=== PATIENT | male | born 1985 | race Caucasian/White ===

== ENCOUNTER 2019-01-15 15:06 | Emergency (ER) | payer MEDICAID ==
[2019-01-15] MEDS ORDERED: DIPH/PERTUSS(ACELL)/TETANUS VAC/PF 0.5 ML SYR (>=10YO) IM ONE (15:33)
[2019-01-15] MEDS ORDERED: CIPROFLOXACIN HCL 500 MG TABLET PO ONE (15:33)
--- NOTE | 2019-01-15 15:35 | ER Document Report ---
ED Medical Screen (RME) - General Chief Complaint: Puncture Wound Stated Complaint: RIGHT FOOT INJURY Time Seen by Provider: 01/15/19 15:29 Primary Care Provider: TACO CONTE [Primary Care Provider] - Follow up as needed Mode of Arrival: Ambulatory Information source: Patient Notes: 33-year-old male presented to ED for puncture wound to his foot. He states that he stepped on a nail with his tennis shoes on this morning. He states he took the nail out and now he has pain up to his middle of his lower leg. He is tetanus shot is up-to-date. 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 He does have a lot of depression and he is with his mother. I have greeted and performed a rapid initial assessment of this patient. A comprehensive ED assessment and evaluation of the patient, analysis of test results and completion of medical decision making process will be conducted by an additional ED providers. TRAVEL OUTSIDE OF THE [place] IN LAST 30 DAYS: No - Related Data Allergies/Adverse Reactions: No Known Allergies Allergy (Verified 01/15/19 15:28) Past Medical History - Social History Chew tobacco use (# tins/day): No Drug Abuse: None Doctor's Discharge - Discharge Referrals: TACO CONTE [Primary Care Provider] - Follow up as needed
--- NOTE | 2019-01-15 15:49 | ER Document Report ---
HPI - HPI Time Seen by Provider: 01/15/19 15:29 Pain Level: 5 Context: Patient is a 33-year-old male presents to the emergency department with a chief complaint of right foot injury. Patient reports around 1020 this morning he was wearing rubber flip-flops when he stepped on a nail. Patient states he did have to remove the nail out of the bottom of his right foot. Patient reports he was concerned because he does not have a tetanus shot. Patient reports he does have pain that radiates up into the right calf. Patient states he has not taken anything for pain. Patient denies redness that streaks of the leg, swelling, fever. Patient denies numbness or tingling to the foot or lower extremity. - REPRODUCTIVE Reproductive: DENIES: : Past Medical History - General Information source: Patient - Social History Smoking Status: Current Every Day Smoker Chew tobacco use (# tins/day): No Drug Abuse: None Lives with: Spouse/Significant other Family History: None Patient has suicidal ideation: No Patient has homicidal ideation: No - Past Medical History Cardiac Medical History: Reports: None Pulmonary Medical History: Reports: None EENT Medical History: Reports: None Neurological Medical History: Reports: None Endocrine Medical History: Reports: None Renal/ Medical History: Reports: None Malignancy Medical History: Reports None GI Medical History: Reports: None Musculoskeletal Medical History: Reports None Skin Medical History: Reports None Psychiatric Medical History: Reports: None Traumatic Medical History: Reports: None Infectious Medical History: Reports: None Surgical Hx: Negative Vertical Provider Document - CONSTITUTIONAL Agree With Documented VS: Yes Exam Limitations: No Limitations General Appearance: No Apparent Distress - INFECTION CONTROL TRAVEL OUTSIDE OF THE [place] IN LAST 30 DAYS: No - HEENT HEENT: Atraumatic, Normocephalic, PERRLA - NECK Neck: Normal Inspection - RESPIRATORY Respiratory: Breath Sounds Normal, No Respiratory Distress - CARDIOVASCULAR Cardiovascular: Regular Rate, Regular Rhythm - GI/ABDOMEN Gastrointestinal: Abdomen Soft, Abdomen Non-Tender - NEURO Level of Consciousness: Awake, Alert, Appropriate - DERM Integumentary: Warm, Dry Notes: There is a puncture wound noted to the plantar aspect of the right foot at the base of the metatarsals. There is no redness, edema, drainage. Patient has a good strong +2 dorsalis pedis and posterior tibial pulse. Course - Re-evaluation Re-evalutation: 01/15/19 15:50 Patient to soak right foot as ordered. Will obtain an x-ray to rule out foreign body. I did inform the patient that he will be placed on oral antibiotics to prevent infection as the nail did go through a rubber flip-flop into the bottom of his foot. Tetanus will be updated. 01/15/19 16:35 Patient has been soaking his foot for about 15 to 20 minutes. I did reevaluate his foot which did not reveal any drainage. I did take a soft Q-tip to investigate the wound. The wound does not appear to be deep. There is no bleeding. Patient reports pain that streaks up to the right lower leg. Patient denies numbness or tingling. I did give the patient strict return precautions to include numbness and tingling, redness, swelling, fever. - Diagnostic Test Radiology reviewed: Reports reviewed Radiology results interpreted by me: 01/15/19 16:25 Foot X-Ray 01/15/19 15:43 IMPRESSION: No acute osseous abnormality of the right foot. No radiopaque foreign body. Discharge - Discharge Clinical Impression: Puncture wound Condition: Stable Disposition: HOME, SELF-CARE Additional Instructions: Today you are seen in the emergency department for a right foot injury. You do have a puncture wound to the plantar aspect of the right foot from a nail. We have thoroughly cleansed the foot and obtained an x-ray to rule out foreign body. The x-ray was negative. You will be placed on oral antibiotics for the next 5 days to help prevent infection as the nail did go through your shoe and into the foot. You are at high risk for infection. Please monitor for signs of redness, swelling, warmth, increasing pain or wound drainage. If you develop numbness, bleeding, inability to move the injured area please return to the emergency department for a prompt re-evaluation. Please keep the foot as clean as possible at home. Puncture Wound You have a puncture wound. Because these wounds often penetrate deeply beneath the skin, you must observe them carefully for complications. The wound has been examined for retained foreign material and for damage to tendons and nerves. The area should be rested and elevated for 24 hours. Then you can use the injured part -- if moving it is painfree. Punctures of the hand or foot may require splinting or crutches. The dressing should be changed daily until the wound is healed. Watch for signs of infection. Call the doctor immediately if redness, swelling, warmth, increasing pain, or wound drainage occur. If you develop numbness, persistent bleeding, or inability to move the injured area, please return for prompt re-evaluation. Prescriptions: Ciprofloxacin HCl [Cipro 500 mg Tablet] 500 mg PO BID #10 tablet Forms: Return to Work Referrals: LOCAL,NO [NO LOCAL MD] - Follow up as needed
--- NOTE | 2019-01-15 16:19 | RADIOLOGY REPORT (SQ) ---
EXAM DESCRIPTION: FOOT RIGHT COMPLETE COMPLETED DATE/TIME: 01/15/2019 4:04 pm REASON FOR STUDY: stepped on nail, r/o foreign body COMPARISON: None. NUMBER OF VIEWS: Three views. TECHNIQUE: AP, lateral and oblique radiographic images acquired of the right foot. LIMITATIONS: None. FINDINGS: MINERALIZATION: Normal. BONES: No acute fracture or dislocation. No osseous lesions. JOINTS: No effusions. SOFT TISSUES: No soft tissue swelling, radiopaque foreign body or subcutaneous emphysema. OTHER: The tarsometatarsal alignment is preserved. IMPRESSION: No acute osseous abnormality of the right foot. No radiopaque foreign body. TECHNICAL DOCUMENTATION: JOB ID: [id number] [email or web address]- All Rights Reserved Reading location - IP/workstation name: [email or web address]
[2019-01-15] MEDS ORDERED: HYDROCODONE/ACETAMINOPHEN 5-325 MG TABLET PO ONE (16:34)
[2019-01-15] MEDS ORDERED: IBUPROFEN 800 MG TABLET PO ONE (16:34)
== END 2019-01-15 16:41 | disposition home or self-care (01) ==
LOC: ER 15:06
DX: S91.331A Puncture wound without foreign body, right foot, initial encounter (principal); W45.0XXA Nail entering through skin, initial encounter; F17.200 Nicotine dependence, unspecified, uncomplicated; Z23 Encounter for immunization
CPT/HCPCS: 73630; 90715; J3490 ×2

== ENCOUNTER → 2019-06-05 | Outpatient (CLI) | payer MEDICAID ==
[2019-06-05 08:48] LABS: ABSOLUTE BASOPHILS # (AUTO) 0.1 10^3/uL (0.0-0.2); ABSOLUTE EOSINOPHILS # (AUTO) 0.5 10^3/uL (0.0-0.6); ABSOLUTE LYMPHOCYTES (AUTO) 3.5 10^3/uL (0.5-4.7); ABSOLUTE MONOCYTES (AUTO) 0.6 10^3/uL (0.1-1.4); ABSOLUTE NEUT (AUTO) 2.1 10^3/uL (1.7-8.2); BASOPHILS % (AUTO) 1.2 % (0-2); EOSINOPHILS % (AUTO) 7.3 % (0-6); HEMATOCRIT 41.5 % (37.9-51.0); HEMOGLOBIN 14.8 g/dL (13.5-17.0); LYMPHOCYTES % (AUTO) 51.9 % (13-45); MEAN CORPUSCULAR HGB CONC 35.6 g/dL (32.0-36.0); MEAN CORPUSCULAR VOLUME 93 fl (80-97); MONOCYTES % (AUTO) 8.4 % (3-13); PLATELET COUNT 251 10^3/uL (150-450); RED BLOOD COUNT 4.48 10^6/uL (4.35-5.55); RED CELL DISTRIBUTION WIDTH 12.5 % (11.5-14.0); SEGMENTED NEUTROPHILS % (AUTO) 31.2 % (42-78); TOTAL CELLS COUNTED % (AUTO) 100 %; WHITE BLOOD COUNT 6.8 10^3/uL (4.0-10.5)
[2019-06-05 09:28] LABS: ALBUMIN 4.3 g/dL (3.5-5.0); ALKALINE PHOSPHATASE 66 U/L (38-126); ANION GAP 8 (5-19); ASPARTATE AMINO TRANSFERASE 28 U/L (17-59); BILIRUBIN,TOTAL 0.5 mg/dL (0.2-1.3); BLOOD UREA NITROGEN 9 mg/dL (7-20); CALCIUM 9.3 mg/dL (8.4-10.2); CARBON DIOXIDE 29 mmol/L (22-30); CHLORIDE 103 mmol/L (98-107); CHOLESTEROL 203.26 mg/dL (0-200); GLUCOSE 94 mg/dL (75-110); POTASSIUM 4.1 mmol/L (3.6-5.0); TOTAL PROTEIN 7.1 g/dL (6.3-8.2); TRIGLYCERIDES 151 mg/dL (<150)
[2019-06-05 09:39] LABS: DIRECT LDL 141 mg/dL (<100)
[2019-06-05 09:42] LABS: VLDL CHOLESTEROL 30.2 mg/dL (10-31)
== END ==
LOC: OD 08:09
PROVIDERS: ATTEND Nurse Practitioner Psychiatric/Mental Health
DX: F90.8 Attention-deficit hyperactivity disorder, other type (principal); Z79.899 Other long term (current) drug therapy
CPT/HCPCS: 36415; 80053; 80061; 83036; 85025

== ENCOUNTER 2019-11-10 03:48 | Observation (INO) | payer MEDICAID ==
[2019-11-10 05:51] LABS: APPEARANCE,URINE CLEAR; BILIRUBIN,URINE NEGATIVE (NEGATIVE); COLOR,URINE YELLOW; GLUCOSE, URINE NEGATIVE (NEGATIVE); KETONES,URINE NEGATIVE (NEGATIVE); LEUKOCYTE ESTERASE,URINE NEGATIVE (NEGATIVE); NITRITE,URINE NEGATIVE (NEGATIVE); PROTEIN,URINE NEGATIVE (NEGATIVE); URINE SPECIFIC GRAVITY 1.024; UROBILINOGEN,URINE NEGATIVE mg/dL (<2.0)
[2019-11-10 06:02] LABS: ABSOLUTE BASOPHILS # (AUTO) 0.1 10^3/uL (0.0-0.2); ABSOLUTE LYMPHOCYTES (AUTO) 1.9 10^3/uL (0.5-4.7); ABSOLUTE MONOCYTES (AUTO) 0.9 10^3/uL (0.1-1.4); ABSOLUTE NEUT (AUTO) 16.1 10^3/uL (1.7-8.2); BASOPHILS % (AUTO) 0.7 % (0-2); EOSINOPHILS % (AUTO) 0.3 % (0-6); HEMATOCRIT 43.1 % (37.9-51.0); HEMOGLOBIN 14.9 g/dL (13.5-17.0); LYMPHOCYTES % (AUTO) 9.9 % (13-45); MEAN CORPUSCULAR HEMOGLOBIN 32.6 pg (27.0-33.4); MEAN CORPUSCULAR HGB CONC 34.7 g/dL (32.0-36.0); MEAN CORPUSCULAR VOLUME 94 fl (80-97); MONOCYTES % (AUTO) 4.6 % (3-13); PLATELET COUNT 260 10^3/uL (150-450); RED BLOOD COUNT 4.58 10^6/uL (4.35-5.55); RED CELL DISTRIBUTION WIDTH 12.8 % (11.5-14.0); SEGMENTED NEUTROPHILS % (AUTO) 84.5 % (42-78); TOTAL CELLS COUNTED % (AUTO) 100 %
[2019-11-10 06:26] LABS: ALBUMIN 4.7 g/dL (3.5-5.0); ALKALINE PHOSPHATASE 71 U/L (38-126); ANION GAP 11 (5-19); ASPARTATE AMINO TRANSFERASE 31 U/L (17-59); BILIRUBIN,TOTAL 0.4 mg/dL (0.2-1.3); BLOOD UREA NITROGEN 11 mg/dL (7-20); CALCIUM 9.6 mg/dL (8.4-10.2); CARBON DIOXIDE 20 mmol/L (22-30); CHLORIDE 105 mmol/L (98-107); GLUCOSE 126 mg/dL (75-110); POTASSIUM 4.6 mmol/L (3.6-5.0); TOTAL PROTEIN 7.7 g/dL (6.3-8.2)
[2019-11-10] MEDS ORDERED: MORPHINE SULFATE 10 MG/ML INJ IV ONE ×2 (06:56→10:13)
[2019-11-10] MEDS ORDERED: NORMAL SALINE 1000 ML 1,000 ML IV ONE ×2 (06:57→10:07)
[2019-11-10] MEDS ORDERED: ONDANSETRON HCL INJ/PF 4 MG/2 ML SDV IV ONE ×2 (06:57→10:13)
[2019-11-10 08:32] LABS: INTERNATIONAL RATION (INR) 0.99; PROTHROMBIN TIME 13.1 SEC (11.4-15.4)
[2019-11-10] MEDS ORDERED: NEOSTIGMINE METHYLSULFATE 10 MG/10 ML VIAL ONE (08:37)
[2019-11-10] MEDS ORDERED: GLYCOPYRROLATE 1 MG/5 ML VIAL ONE (08:37)
--- NOTE | 2019-11-10 09:49 | RADIOLOGY REPORT (SQ) ---
EXAM DESCRIPTION: CT ABD/PELVIS WITH IV ORAL IMAGES COMPLETED DATE/TIME: 11/10/2019 9:33 am REASON FOR STUDY: abd pain/rlq/leukocytosis COMPARISON: None. TECHNIQUE: CT scan of the abdomen and pelvis performed with intravenous and oral contrast using reina selena scanning technique with dynamic intravenous contrast injection. Images reviewed with lung, soft t issue, and bone windows. Reconstructed coronal and sagittal MPR images reviewed. Delayed images for e valuation of the urinary system also acquired. All images stored on PACS. All CT scanners at this facility use dose modulation, iterative reconstruction, and/or weight based d osing when appropriate to reduce radiation dose to as low as reasonably achievable (ALARA). [facility]: Dose Right [facility]: CareDose [facility]: Dose Right [facility]: Teradose 4D [facility]: [employer] CONTRAST TYPE AND DOSE: contrast/concentration: Isovue 350.00 mmol/ml; Total Contrast Delivered: 100 .0 ml; Total Saline Delivered: 72.0 ml RENAL FUNCTION: GFR > 60. RADIATION DOSE: CT Rad equipment meets quality standard of care and radiation dose reduction techniq ues were employed. CTDIvol: 10.3 - 14.6 mGy. DLP: 1521 mGy-cm.. LIMITATIONS: None. FINDINGS: LOWER CHEST: No significant findings. No nodules or infiltrates. LIVER: Diffusely fatty with some sparing about the gallbladder fossa. No mass or duct dilatation. SPLEEN: Normal size. No focal lesions. PANCREAS: No masses. No significant calcifications. No adjacent inflammation or peripancreatic fluid collections. Pancreatic duct not dilated. GALLBLADDER: No identified stones by CT criteria. No inflammatory changes to suggest cholecystitis. ADRENAL GLANDS: No significant masses or asymmetry. RIGHT KIDNEY AND URETER: No solid masses. No significant calcification. No hydronephrosis or hydroure ter. LEFT KIDNEY AND URETER: No solid masses. No significant calcification. No hydronephrosis or hydrouret er. AORTA AND VESSELS: No aneurysm. No dissection. Renal arteries, SMA, celiac without stenosis. RETROPERITONEUM: No retroperitoneal adenopathy, hemorrhage or masses. BOWEL AND PERITONEAL CAVITY: No obstruction. No visualized masses. No free fluid. No inflammatory ch anges or thickening of bowel wall. APPENDIX: Mildly distended thick-walled appearance with regional periappendiceal fat stranding. No f luid collections. No abscess or perforation. PELVIS: No significant masses. Normal bladder. No free fluid. ABDOMINAL WALL: No masses. No hernias. BONES: No significant or acute findings. OTHER: No other significant finding. IMPRESSION: 1. Uncomplicated acute appendicitis. No periappendiceal abscess or perforation. TECHNICAL DOCUMENTATION: JOB ID: [id number] Quality ID # [id number]: Final reports with documentation of one or more dose reduction techniques (e.g., Au tomated exposure control, adjustment of the mA and/or kV according to patient size, use of iterative reconstruction technique) 2010 [employer]- All Rights Reserved Reading location - IP/workstation name: [email or web address]
--- NOTE | 2019-11-10 10:20 | ER Document Report ---
Entered by CHRISTOFER MCKINLEY SCRIBE 11/10/19 0646 Acting as scribe for:MANE COTTER MD ED GI/ - General Chief Complaint: Abdominal Pain Stated Complaint: ABDOMINAL PAIN, CHILLS, NAUSEA, DIARRHEA Time Seen by Provider: 11/10/19 06:24 Information source: Patient Notes: This 34 year old male patient presents to the emergency department today with RLQ pain which began yesterday morning. Patient states the pain is dull and exacerbated by movement. Patient states the last time he ate was around 5 pm yesterday and vomited x1 last night after taking something for constipation. Patient states his bowel movement is normal in color and reports nausea and chills. Denies fever, cough, or sore throat. Denies any GI or Surgical history. Patient states his only medical history is anxiety and is on medications. TRAVEL OUTSIDE OF THE [place] IN LAST 30 DAYS: No - Related Data Allergies/Adverse Reactions: No Known Allergies Allergy (Verified 01/15/19 15:28) Past Medical History - General Information source: Patient - Social History Smoking Status: Current Every Day Smoker Cigarette use (# per day): Yes Family History: None Psychiatric Medical History: Reports: Hx Anxiety - On meds Past Surgical History: Reports: None Review of Systems - Review of Systems Constitutional: See HPI, Chills. denies: Fever EENT: See HPI. denies: Throat pain Cardiovascular: No symptoms reported Respiratory: See HPI. denies: Cough Gastrointestinal: See HPI, Abdominal pain, Nausea, Vomiting - x1 Genitourinary: No symptoms reported Male Genitourinary: No symptoms reported Musculoskeletal: No symptoms reported Skin: No symptoms reported Hematologic/Lymphatic: No symptoms reported Neurological/Psychological: No symptoms reported -: Yes All other systems reviewed and negative Physical Exam - Vital signs Vitals: Temp Pulse Resp BP Pulse Ox 98.6 F 84 18 131/89 H 99 11/10/19 04:41 11/10/19 04:41 11/10/19 04:41 11/10/19 04:41 11/10/19 04:41 - General General appearance: Appears well, Alert - HEENT Head: Normocephalic, Atraumatic Eyes: Normal Pupils: PERRL Mucous membranes: Dry Pharynx: Normal - Respiratory Respiratory status: No respiratory distress Chest status: Nontender Breath sounds: Normal Chest palpation: Normal - Cardiovascular Rhythm: Regular Heart sounds: Normal auscultation Murmur: No - Abdominal Inspection: Normal Distension: No distension Bowel sounds: Normal Notes: Rebound tenderness in the RLQ. - Extremities General upper extremity: Normal inspection. No: Edema General lower extremity: Normal inspection. No: Edema - Neurological Neuro grossly intact: Yes Cognition: Normal Orientation: AAOx4 Speech: Normal - Psychological Associated symptoms: Normal affect, Normal mood - Skin Skin Temperature: Warm Skin Moisture: Dry Skin Color: Normal Course - Re-evaluation Re-evalutation: 11/10/19 10:14 Patient continues to have pain in his right lower quadrant despite having given prior IV morphine. We will rebolus IV morphine and Zofran to get better control lower abdominal pain. Patient does have a diagnosis of appendicitis proved on CT scan. Case has been discussed with Dr. Cummins. - Vital Signs Vital signs: Temp Pulse Resp BP Pulse Ox 98.3 F 86 18 131/79 H 99 11/10/19 07:54 11/10/19 07:54 11/10/19 07:54 11/10/19 07:54 11/10/19 07:54 Vital signs are stable. - Laboratory Result Diagrams: 11/10/19 05:40 11/10/19 05:40 Laboratory results interpreted by me: 11/10/19 11/10/19 11/10/19 04:45 05:40 05:40 WBC 19.0 H Lymph % (Auto) 9.9 L Absolute Neuts (auto) 16.1 H Seg Neutrophils % 84.5 H Sodium 135.9 L Carbon Dioxide 20 L Glucose 126 H Urine Blood SMALL H 11/10/19 10:15 Laboratories significant for a 19,000 white count small amount of blood noted in the urine. - Diagnostic Test Radiology reviewed: Image reviewed, Reports reviewed Radiology results interpreted by me: 11/10/19 10:17 CT scan shows acute appendicitis uncomplicated otherwise no other acute process. Discharge - Discharge Clinical Impression: Acute appendicitis Condition: Serious Disposition: ADMITTED INPATIENT Admitting Provider: bruce Unit Admitted: Surgical Floor I personally performed the services described in the documentation, reviewed and edited the documentation which was dictated to the scribe in my presence, and it accurately records my words and actions.
[2019-11-10] MEDS ORDERED: DEXTROSE 50%-WATER 25 GM/50 ML DISP.SYRIN IV PRN ×2 (10:36)
[2019-11-10] MEDS ORDERED: MORPHINE SULFATE 10 MG/ML INJ IV PRN ×2 (10:36→13:00)
[2019-11-10] MEDS ORDERED: DEXTROSE 5%-LACTATED RINGERS 1,000 ML IV PRN (10:36)
[2019-11-10] MEDS ORDERED: GLUCAGON,HUMAN RECOMB 1 MG INJ SUBCUT PRN (10:36)
[2019-11-10] MEDS ORDERED: ONDANSETRON HCL INJ/PF 4 MG/2 ML SDV IV PRN (10:36)
[2019-11-10] MEDS ORDERED: DEXTROSE 40% GEL 15 GM TUBE PO PRN ×2 (10:36)
[2019-11-10] MEDS ORDERED: PIPERACILLIN/TAZOBACTAM 3.375 GM VIAL IV ONE (10:39)
--- NOTE | 2019-11-10 10:46 | PDOC H&P ---
History of Present Illness Admission Date/PCP: 11/10/19 10:32 Patient complains of: Right lower quadrant abdominal pain History of Present Illness: JEANNA OWSUU is a 34 year old male with a one-day history of right lower quadrant abdominal pain. He reports that he is 10 out of 10. It is sharp and stabbing. It began in his right lower quadrant, and now extends across his pelvis to his left lower quadrant. He also reports pain radiating into his back. His pain is constant and severe. Nothing makes it better. Movement and palpation make it worse. He denies nausea, vomiting, hematochezia, hematemesis, melena, fevers, chills, dizziness, orthostasis, chest pain, shortness of breath, headache, malaise, fatigue. The patient presented to the emergency department, where a CT scan was obtained showing acute appendicitis. Past Medical History Medical History: None Past Surgical History Past Surgical History: Reports: None Social History Smoking Status: Current Every Day Smoker Frequency of Alcohol Use: None Hx Recreational Drug Use: No Hx Prescription Drug Abuse: No Family History Family History: DM, Hyperlipidemia, Hypertension Parental Family History Reviewed: Yes Children Family History Reviewed: Yes Sibling(s) Family History Reviewed.: Yes Medication/Allergy Home Medications: Bupropion HCl [Bupropion HCl Sr] 150 mg PO Q12 11/10/19 Clonazepam 0.5 mg PO BIDP PRN 11/10/19 Paroxetine HCl 40 mg PO QAM 11/10/19 Allergies/Adverse Reactions: No Known Allergies Allergy (Verified 01/15/19 15:28) Review of Systems Constitutional: ABSENT: anorexia, chills, fatigue Eyes: ABSENT: visual disturbances Ears: ABSENT: hearing changes Nose, Mouth, and Throat: ABSENT: mouth pain, sore throat Cardiovascular: ABSENT: chest pain Respiratory: ABSENT: cough Gastrointestinal: PRESENT: abdominal pain, bloating. ABSENT: hematemesis, hematochezia, melena, nausea, vomiting Genitourinary: ABSENT: dysuria Musculoskeletal: PRESENT: back pain Integumentary: ABSENT: pruritus, rash Neurological: ABSENT: confusion, convulsions, dizziness Psychiatric: ABSENT: anxiety, depression Endocrine: ABSENT: cold intolerance, heat intolerance Hematologic/Lymphatic: ABSENT: easy bleeding, easy bruising Physical Exam Vital Signs: Temp Pulse Resp BP Pulse Ox 98.3 F 86 18 131/79 H 99 11/10/19 07:54 11/10/19 07:54 11/10/19 07:54 11/10/19 07:54 11/10/19 07:54 Intake & Output 11/09/19 11/10/19 11/11/19 06:59 06:59 06:59 Intake Total 1000 Balance 1000 Weight 90.718 kg General appearance: PRESENT: mild distress - Abdominal discomfort Head exam: PRESENT: atraumatic, normocephalic Eye exam: PRESENT: EOMI, PERRLA. ABSENT: scleral icterus Mouth exam: PRESENT: neck supple Neck exam: ABSENT: meningismus, tenderness, thyromegaly, tracheal deviation Respiratory exam: PRESENT: unlabored. ABSENT: tachypnea, wheezes Cardiovascular exam: ABSENT: tachycardia Vascular exam: PRESENT: normal capillary refill GI/Abdominal exam: PRESENT: guarding - Right lower quadrant, soft, tenderness - Right lower quadrant. ABSENT: distended, firm Rectal exam: PRESENT: deferred Extremities exam: ABSENT: clubbing Musculoskeletal exam: ABSENT: deformity Neurological exam: PRESENT: alert, awake, oriented to person, oriented to place, oriented to time, oriented to situation, CN II-XII grossly intact. ABSENT: motor sensory deficit Psychiatric exam: ABSENT: agitated, anxious, depressed Focused psych exam: ABSENT: delusional Skin exam: ABSENT: cyanosis, erythema, jaundice Results Laboratory Results: 11/10/19 05:40 11/10/19 05:40 11/10/19 11/10/19 11/10/19 04:45 05:40 05:40 WBC 19.0 H RBC 4.58 Hgb 14.9 Hct 43.1 MCV 94 MCH 32.6 MCHC 34.7 RDW 12.8 Plt Count 260 Seg Neutrophils % 84.5 H Sodium 135.9 L Potassium 4.6 Chloride 105 Carbon Dioxide 20 L Anion Gap 11 BUN 11 Creatinine 0.88 Est GFR ( Amer) > 60 Glucose 126 H Calcium 9.6 Total Bilirubin 0.4 AST 31 Alkaline Phosphatase 71 Total Protein 7.7 Albumin 4.7 Lipase 41.5 Urine Color YELLOW Urine Appearance CLEAR Urine pH 5.0 Ur Specific [place] 1.024 Urine Protein NEGATIVE Urine Glucose (UA) NEGATIVE Urine Ketones NEGATIVE Urine Blood SMALL H Urine Nitrite NEGATIVE Ur Leukocyte Esterase NEGATIVE Urine WBC (Auto) 0 Urine RBC (Auto) 0 Blood Type Antibody Screen 11/10/19 08:00 WBC RBC Hgb Hct MCV MCH MCHC RDW Plt Count Seg Neutrophils % Sodium Potassium Chloride Carbon Dioxide Anion Gap BUN Creatinine Est GFR ( Amer) Glucose Calcium Total Bilirubin AST Alkaline Phosphatase Total Protein Albumin Lipase Urine Color Urine Appearance Urine pH Ur Specific [place] Urine Protein Urine Glucose (UA) Urine Ketones Urine Blood Urine Nitrite Ur Leukocyte Esterase Urine WBC (Auto) Urine RBC (Auto) Blood Type O POSITIVE Antibody Screen NEGATIVE Impressions: Abdomen/Pelvis CT 11/10/19 00:00 IMPRESSION: 1. Uncomplicated acute appendicitis. No periappendiceal abscess or perforation. Assessment & Plan - Diagnosis (1) Acute appendicitis Qualifiers: Acute appendicitis type: with localized peritonitis Appendicitis perforat ion presence: without perforation Appendicitis abscess presence: without abscess Is this a current diagnosis for this admission?: Yes - Plan Summary Plan Summary: This is a 34-year-old male with a 1 day history of right lower quadrant abdominal pain. His ED work-up consisted of laboratory evaluation and a CT scan. Patient has a leukocytosis, and a thickened/inflamed appendix on CT. Shonna vargas reviewed the CT images and the report. I have recommended surgical intervention for the patient. Plan for laparoscopic versus open appendectomy ONEAL. The patient is in agreement with the treatment plan. COVID test now. Zosyn now. Continue IV fluids. Risks/benefits discussed, informed consent obtained, and all questions answered.
--- NOTE | 2019-11-10 11:09 | RADIOLOGY REPORT (SQ) ---
EXAM DESCRIPTION: CHEST SINGLE VIEW IMAGES COMPLETED DATE/TIME: 11/10/2019 10:55 am REASON FOR STUDY: tobacco smoker COMPARISON: 06/20/2009 TECHNIQUE: Single frontal radiographic view of the chest acquired. NUMBER OF VIEWS: One view. LIMITATIONS: None. FINDINGS: LUNGS AND PLEURA: No pneumothorax. No consolidation or pleural effusion. Minimal left lat eral basilar scarring. MEDIASTINUM AND HILAR STRUCTURES: Stable. HEART AND VASCULAR STRUCTURES: Stable. BONES: No acute findings. HARDWARE: None in the chest. OTHER: No other significant finding. IMPRESSION: NO ACUTE FINDINGS. TECHNICAL DOCUMENTATION: JOB ID: [id number] [place]-72 2010 [employer]- All Rights Reserved Reading location - IP/workstation name: [email or web address]
[2019-11-10] MEDS: KETOROLAC TROMETHAMINE INJ/PF 30 MG/1 ML SDV IV SCH ×2 (12:19→15:38)
[2019-11-10] MEDS ORDERED: BUPIVACAINE HCL 0.25 % INJ/PF (2.5 MG/1 ML) 30 ML VIAL ONE (12:27)
[2019-11-10] MEDS ORDERED: PIPERACILLIN SODIUM/TAZOBACTAM 3.375 GM in NORMAL SALINE 100 ML IV SCH (12:30)
[2019-11-10] MEDS ORDERED: MIDAZOLAM 2 MG/2 ML INJ ONE (12:50)
[2019-11-10] MEDS ORDERED: FENTANYL CITRATE INJ/PF 100 MCG/2 ML AMPUL ONE (12:50)
[2019-11-10] MEDS ORDERED: LIDOCAINE 2% INJ-PF (100 MG/5 ML) SYRINGE ONE (12:50)
[2019-11-10] MEDS ORDERED: PROPOFOL INJ 200 MG/20 ML VIAL IV ONE (12:50)
[2019-11-10] MEDS ORDERED: KETOROLAC TROMETHAMINE 60 MG/2 ML SDV ONE (12:50)
[2019-11-10] MEDS ORDERED: ONDANSETRON HCL INJ/PF 4 MG/2 ML SDV ONE (12:50)
[2019-11-10] MEDS ORDERED: DEXAMETHASONE SOD PHOSPHATE INJ 4 MG/1 ML VIAL ONE (12:50)
[2019-11-10] MEDS ORDERED: FENTANYL CITRATE INJ/PF 100 MCG/2 ML AMPUL IV PRN ×3 (13:00)
[2019-11-10] MEDS ORDERED: PROMETHAZINE HCL INJ 25 MG/1 ML VIAL IV PRN (13:00)
[2019-11-10] MEDS ORDERED: DIPHENHYDRAMINE HCL 50 MG/ML VIAL IV PRN (13:00)
[2019-11-10] MEDS ORDERED: MEPERIDINE HCL/PF INJ 25 MG/1 ML DISP.SYRIN IV PRN (13:00)
[2019-11-10] MEDS ORDERED: HYDROCODONE/ACETAMINOPHEN 10-325 MG TABLET PO PRN (14:19)
--- NOTE | 2019-11-10 14:26 | Operative Report ---
Nonrecallable Operative Report DATE OF SURGERY: 11/10/19 PREOPERATIVE DIAGNOSIS: Acute appendicitis POSTOPERATIVE DIAGNOSIS: Acute nonperforated appendicitis OPERATION: Laparoscopic appendectomy SURGEON: ARIADNA HUFF ANESTHESIA: GA TISSUE REMOVED OR ALTERED: Appendix COMPLICATIONS: None apparent. ESTIMATED BLOOD LOSS: Minimal PROCEDURE: Drains/implants: None. Procedure in detail: After informed consent was obtained, the patient was brought to the operating room and laid in the supine position. The area of the abdomen was prepped and draped in a normal sterile fashion. A supraumbilical incision was created with a 15 blade scalpel. Dissection was carried through the subcutaneous tissues using sharp and blunt dissection. The cicatrix was identified, grasped with a Ever clamp, and retracted upwards. The linea alba fascia was incised sharply, the abdomen was entered sharply. The balloon trocar was inserted, and pneumoperitoneum was achieved. A suprapubic 5 mm trocar was placed under direct laparoscopic visualization, as was a left lower quadrant 5 mm trocar. Atraumatic graspers were placed through the 5 mm ports. The appendix was easily identified. It was retracted anteriorly. The mesoappendix was taken down using the harmonic scalpel. PDS Endoloops were secured around the base of the appendix x2. The appendix was amputated using the harmonic scalpel. The appendix was placed into an Endo Catch bag and pulled out through the umbilicus. The camera was reinserted. The appendiceal stump was inspected. There was no bleeding in the right lower quadrant. A small amount of sero-sanguinous fluid was suctioned from the right lower quadrant. No irrigation was used. The 5 mm trochars were then removed under direct laparoscopic visualization. The supraumbilical trocar was removed, and pneumoperitoneum was relieved. The supraumbilical fascia was closed using 0 Vicryl suture in [id number] fashion. The overlying skin was closed using 4-0 Vicryl Rapide suture in subcuticular fashion. Dressings were placed, and the procedure was concluded. All sponge, instrument, and needle counts were correct x2. Condition: Stable.
--- NOTE | 2019-11-10 18:13 | PDOC DISCHARGE SUMMARY ---
General - Admit/Disc Date/PCP Admission Date/Primary Care Provider: 11/10/19 10:32 Discharge Date: 11/10/19 - Discharge Diagnosis Final Diagnosis: Acute nonperforated appendicitis - Assessment Summary: This is a 34-year-old male, admitted the hospital today with acute appendicitis. Patient was taken to the operating room for laparoscopic appendectomy. He was found to have nonperforated acute appendicitis, and the surgery was successfully performed laparoscopically. The patient is ambulating, tolerating a diet, and it is felt that he has reached maximal hospital benefit. At this time he is medically fit for discharge. - Additional Information Resuscitation Status: Full Code Discharge Diet: As Tolerated Discharge Activity: No Lifting Over 10 Pounds, No Lifting/Push/Pulling Prescriptions: Hydrocodone/Acetaminophen [[place] 10-325 mg Tablet] 1 tab PO Q6HP PRN #14 tablet PRN Reason: For Pain Home Medications: Bupropion HCl [Bupropion HCl Sr] 150 mg PO Q12 11/10/19 Clonazepam 0.5 mg PO BIDP PRN 11/10/19 Hydrocodone/Acetaminophen [[place] 10-325 mg Tablet] 1 tab PO Q6HP PRN #14 tablet 11/10/19 Paroxetine HCl 40 mg PO QAM 11/10/19 Additional Information: Discharge home. Diet as tolerated. Activity: No lifting greater than 10 pounds x 2 weeks. Follow-up with [facility] in 7 to 10 days. Okay to shower starting Monday. No swimming pools, hot tubs, or tub baths x2 weeks. [place] 10/325 mg p.o. every 6 hours as needed for pain. History of Present Illiness History of Present Illness: JEANNA OWUSU is a 34 year old male with a one-day history of right lower quadrant abdominal pain. He reports that he is 10 out of 10. It is sharp and stabbing. It began in his right lower quadrant, and now extends across his pelvis to his left lower quadrant. He also reports pain radiating into his back. His pain is constant and severe. Nothing makes it better. Movement and palpation make it worse. He denies nausea, vomiting, hematochezia, hematemesis, melena, fevers, chills, dizziness, orthostasis, chest pain, shortness of breath, headache, malaise, fatigue. The patient presented to the emergency department, where a CT scan was obtained showing acute appendicitis. Physical Exam Vital Signs: Temp Pulse Resp BP Pulse Ox 97.5 F 86 16 121/62 98 11/10/19 17:00 11/10/19 17:00 11/10/19 17:00 11/10/19 17:00 11/10/19 17:00 Intake & Output 11/09/19 11/10/19 11/11/19 06:59 06:59 06:59 Intake Total 3300 Output Total 10 Balance 3290 Weight 90.718 kg Results Laboratory Results: WBC 19.0 10^3/uL (4.0-10.5) H 11/10/19 05:40 RBC 4.58 10^6/uL (4.35-5.55) 11/10/19 05:40 Hgb 14.9 g/dL (13.5-17.0) 11/10/19 05:40 Hct 43.1 % (37.9-51.0) 11/10/19 05:40 MCV 94 fl (80-97) 11/10/19 05:40 MCH 32.6 pg (27.0-33.4) 11/10/19 05:40 MCHC 34.7 g/dL (32.0-36.0) 11/10/19 05:40 RDW 12.8 % (11.5-14.0) 11/10/19 05:40 Plt Count 260 10^3/uL (150-450) 11/10/19 05:40 Lymph % (Auto) 9.9 % (13-45) L 11/10/19 05:40 [place] % (Auto) 4.6 % (3-13) 11/10/19 05:40 Eos % (Auto) 0.3 % (0-6) 11/10/19 05:40 Baso % (Auto) 0.7 % (0-2) 11/10/19 05:40 Absolute Neuts (auto) 16.1 10^3/uL (1.7-8.2) H 11/10/19 05:40 Absolute Lymphs (auto) 1.9 10^3/uL (0.5-4.7) 11/10/19 05:40 Absolute Monos (auto) 0.9 10^3/uL (0.1-1.4) 11/10/19 05:40 Absolute Eos (auto) 0.0 10^3/uL (0.0-0.6) 11/10/19 05:40 Absolute Basos (auto) 0.1 10^3/uL (0.0-0.2) 11/10/19 05:40 Seg Neutrophils % 84.5 % (42-78) H 11/10/19 05:40 PT 13.1 SEC (11.4-15.4) 11/10/19 08:00 INR 0.99 11/10/19 08:00 APTT 29.0 SEC (23.5-35.8) 11/10/19 08:00 Sodium 135.9 mmol/L (137-145) L 11/10/19 05:40 Potassium 4.6 mmol/L (3.6-5.0) 11/10/19 05:40 Chloride 105 mmol/L (98-107) 11/10/19 05:40 Carbon Dioxide 20 mmol/L (22-30) L 11/10/19 05:40 Anion Gap 11 (5-19) 11/10/19 05:40 BUN 11 mg/dL (7-20) 11/10/19 05:40 Creatinine 0.88 mg/dL (0.52-1.25) 11/10/19 05:40 Est GFR ( Amer) > 60 (>60) 11/10/19 05:40 Est GFR (MDRD) Non-Af > 60 (>60) 11/10/19 05:40 Glucose 126 mg/dL (75-110) H 11/10/19 05:40 Calcium 9.6 mg/dL (8.4-10.2) 11/10/19 05:40 Total Bilirubin 0.4 mg/dL (0.2-1.3) 11/10/19 05:40 Direct Bilirubin 0.0 mg/dL (0.0-0.4) 11/10/19 05:40 Neonat Total Bilirubin Not Reportable 11/10/19 05:40 Neonat Direct Bilirubin Not Reportable 11/10/19 05:40 Neonat Indirect Bili Not Reportable 11/10/19 05:40 AST 31 U/L (17-59) 11/10/19 05:40 ALT 39 U/L (<50) 11/10/19 05:40 Alkaline Phosphatase 71 U/L (38-126) 11/10/19 05:40 Total Protein 7.7 g/dL (6.3-8.2) 11/10/19 05:40 Albumin 4.7 g/dL (3.5-5.0) 11/10/19 05:40 Lipase 41.5 U/L (23-300) 11/10/19 05:40 Urine Color YELLOW 11/10/19 04:45 Urine Appearance CLEAR 11/10/19 04:45 Urine pH 5.0 (5.0-9.0) 11/10/19 04:45 Ur Specific [place] 1.024 11/10/19 04:45 Urine Protein NEGATIVE mg/dL (NEGATIVE) 11/10/19 04:45 Urine Glucose (UA) NEGATIVE mg/dL (NEGATIVE) 11/10/19 04:45 Urine Ketones NEGATIVE mg/dL (NEGATIVE) 11/10/19 04:45 Urine Blood SMALL (NEGATIVE) H 11/10/19 04:45 Urine Nitrite NEGATIVE (NEGATIVE) 11/10/19 04:45 Urine Bilirubin NEGATIVE (NEGATIVE) 11/10/19 04:45 Urine Urobilinogen NEGATIVE mg/dL (<2.0) 11/10/19 04:45 Ur Leukocyte Esterase NEGATIVE (NEGATIVE) 11/10/19 04:45 Urine WBC (Auto) 0 /HPF 11/10/19 04:45 Urine RBC (Auto) 0 /HPF 11/10/19 04:45 U Hyaline Cast (Auto) 1 /LPF 11/10/19 04:45 Squamous Epi Cells Auto <1 /HPF 11/10/19 04:45 Urine Mucus (Auto) FEW /LPF 11/10/19 04:45 Urine Ascorbic Acid NEGATIVE (NEGATIVE) 11/10/19 04:45 SARS-CoV-2 (PCR) NEGATIVE (NEGATIVE) 11/10/19 10:05 Blood Type O POSITIVE 11/10/19 08:00 Antibody Screen NEGATIVE 11/10/19 08:00 Impressions: Abdomen/Pelvis CT 11/10/19 00:00 IMPRESSION: 1. Uncomplicated acute appendicitis. No periappendiceal abscess or perforation. Chest X-Ray 11/10/19 10:17 IMPRESSION: NO ACUTE FINDINGS.
[2019-11-10 18:36] VITALS: BP 129/76
== END 2019-11-10 18:51 | disposition home or self-care (01) ==
LOC: ER 03:48 → INTOOBSV 10:32 → EH 10:32 → 4N 15:16
PROVIDERS: ATTEND Surgery
DX: K35.30 Acute appendicitis with localized peritonitis, without perforation or gangrene (principal); F17.210 Nicotine dependence, cigarettes, uncomplicated; F41.9 Anxiety disorder, unspecified; Z03.818 Encounter for observation for suspected exposure to other biological agents ruled out; Z79.899 Other long term (current) drug therapy
CPT/HCPCS: 99285; 96361; 96374; 96375; 86900; 86901; 36415; 86850; 83690; 85025; 85610; 85730; 87635; 80053; 81001; 88304 ×2; 71045; 74177; 94799; 99140; 00840; 44970; G0378 ×2; J2250; J1100; J1885 ×2; J3010; J2001; J2270; J2710; J2405; J3490 ×2; J7050; J7030; J2704; J2543; C9803; 840